=== PATIENT | male | born 1995 | race Caucasian/White ===

== ENCOUNTER 2024-03-17 22:27 | Emergency (ER) | payer BC, SELFPAY ==
--- NOTE | ~2024-03-17 | XR_ITS ---
EXAMINATION: XR chest 2V Exam Date/Time: 03/17/2024 22:42 CDT HISTORY: palpitations Comparison: 05/06/2015. RESULT: Lines, tubes, and devices: None. Lungs and pleura: Clear. Cardiomediastinal silhouette: Stable. Other: No acute osseous or upper abdominal finding. IMPRESSION: No acute cardiopulmonary process. Reviewed, dictated and finalized at location K.
--- NOTE | 2024-03-17 22:30 | ECG_ITS ---
Test Date: 2024-03-17 22:39:35 Measurements Intervals [place] Rate: 74 P: 41 [place]: 136 QRS: 27 QRSD: 110 T: 66 QT: 348 QTc: 386 Interpretive Statements SINUS RHYTHM INCOMPLETE RIGHT BUNDLE BRANCH BLOCK BASELINE ARTIFACT- I, II, III, AVR, AVL BORDERLINE ECG No previous ECG available for comparison Electronically Signed On 03-18-2024 06:26:01 CDT by Shyam Walter D.O.
[2024-03-17 22:34] VITALS: BP 135/91; PULSE 78; RESP 16; TEMP 36.8; O2SAT 100
[2024-03-17 22:45] LABS: Basophils Percent Auto 0.5 % (0.2-1.2); Eosinophils Absolute Auto 0.2 K/mm3 (0-0.3); Eosinophils Percent Auto 2.8 % (0-4.4); Hematocrit 47.5 % (42.0-52.0); Hemoglobin 16.7 g/dL (14.0-18.0); Immature Granulocyte Absolute 0.03 K/mm3 (0.00-0.031); Immature Granulocyte Percent A 0.4 % (0-0.5); Lymphocytes Absolute Auto 2.43 K/mm3 (0.9-3.2); Lymphocytes Percent Auto 29.5 % (18.3-44.2); Mean Corpuscular HGB Conc 35.2 g/dl (32-36); Mean Corpuscular Hemoglobin 30.1 pg (26-34); Mean Corpuscular Volume 85.7 fl (80-100); Mean Platelet Volume 11.7 fl (7.4-10.4); Monocytes Absolute Auto 0.5 K/mm3 (0.1-0.6); Monocytes Percent Auto 6.6 % (2.6-8.5); Neutrophils Percent Auto 60.2 % (45.5-73.1); Platelet Count Result 191 k/mm3 (150-375); Red Blood Count 5.54 M/mm3 (4.6-6.20); Red Cell Distribution Width 12.2 % (11.5-14.5); White Blood Count 8.2 K/mm3 (4.5-10.0)
[2024-03-17 22:55] LABS: Prothrombin Time 13.7 Seconds (11.1-14.7)
[2024-03-17 22:56] LABS: Partial Thromboplastin Time 28.2 Seconds (22.3-36.8)
[2024-03-17 23:05] LABS: Alanine Aminotransferase 32 U/L (6-50); Albumin Level 5.4 g/dL (3.5-5.1); Alkaline Phosphatase 52 U/L (38-126); Anion Gap 11 mmol/L (4-12); Aspartate Amino Transferase 31 U/L (17-59); Bilirubin,Total 0.9 mg/dL (0.2-1.3); Blood Urea Nitrogen 18 mg/dL (9-20); Calcium 9.7 mg/dL (8.4-10.2); Carbon Dioxide 26 mmol/L (22-30); Chloride 103 mmol/L (98-107); Estimated CRCL calculation 124 ml/min; Estimated Glomerular Filt Rate > 60; Glucose 98 mg/dL (65-110); Lipase 92 U/L (23-300); Potassium 3.7 mmol/L (3.4-5.0); Sodium 140 mmol/L (137-145)
[2024-03-17 23:12] VITALS: PULSE 78
[2024-03-17] MEDS: ASPIRIN 81 MG CHEWABLE TABLET 324 MG PO (23:13)
[2024-03-17 23:16] VITALS: BP 143/95; PULSE 89; RESP 21; O2SAT 96
[2024-03-17 23:16] LABS: Troponin I < 0.012 ng/mL (0.000-0.034)
[2024-03-17 23:31] VITALS: BP 127/86; PULSE 78; RESP 19; O2SAT 96
[2024-03-17 23:46] VITALS: BP 129/86; PULSE 74; RESP 18; O2SAT 95
--- NOTE | 2024-03-17 23:55 | ED.ARRPALP ---
HPI - Arrhythmia/Palpitations General Chief Complaint: Arrhythmia/Palpitations Stated Complaint: palpitations Time Seen by Provider: 03/17/24 23:38 History of Present Illness HPI narrative: Patient is a 28-year-old male with history of anxiety here with palpitations and an abnormal EKG reading that he performed on his own. Patient states he has had a very stressful work life recently had a stressful day at work, did not eat anything until this evening. He states that he got home from work began having symptoms around 8:00 p.m.. He notes that he was feeling palpitations and some tingling on the left side of his face. He started breathing quickly and did attempt to perform multiple EKGs through an twin on his phone. He states that he was having high heart rates up to 117 and had difficulty getting his heart rate below 100 while resting. His EKG readings read inconclusive, 1 of these read possible atrial fibrillation. He denies any history of cardiac disease. He takes multiple medications for anxiety. No recent changes in his medications. No history of PE or DVT. No recent travel or surgery. Symptoms have now resolved. Related Data Allergies Allergy/AdvReac Type Severity Reaction Status Date / Time No Known Allergies Allergy Verified 03/17/24 22:35 Review of Systems Review of Systems: All systems reviewed & are unremarkable except as noted in HPI and below Exam Narrative: GENERAL: Well-appearing, well-nourished, and in no acute distress. HEAD: Normocephalic, atraumatic. EYES: PERRLA and EOMI. ENT: Nares clear. Mucous membranes moist. NECK: Supple. CHEST: Clear to auscultation. No respiratory distress. HEART: Regular rate and rhythm. Normal peripheral pulses. ABDOMEN: Soft, nontender, nondistended. EXTREMITIES: Normal range of motion. No edema. SKIN: Warm, dry, no rash. NEURO: No focal deficits. Alert and oriented x3. PSYCH: Normal mood and affect. Course Course Emergency Course: Chart review performed. Patient here for palpitations and abnormal reading on his apple watch. Triage vitals normal. No prior visits in our system. Initial triage lab work reviewed, CBC unremarkable, electrolytes within normal limits. Initial troponin negative. Lipase normal. Chest x-ray negative. Patient seen evaluated, nontoxic appearing. Alert, oriented. Reviewed all initial results with patient, these are unremarkable and he has a heart score of 0. I did discuss options for repeat troponin, patient declined and would prefer to follow-up his primary care doctor. Given his low risk of cardiac disease and his initial negative workup I believe that this is appropriate. The results of pertinent diagnostic studies and exam findings were discussed. The patient?s provisional diagnosis and plan of care were discussed with the patient and present family. The patient and/or present family expressed understanding of the diagnosis and plan. The nurse was instructed to provide written instructions and appropriate follow-up information. The patient understands their need and responsibility to obtain additional follow-up as instructed. The risks of medications administered and prescribed were discussed with the patient and family present. Vital Signs Vital signs: Vital Signs Temperature 98.2 F 03/17/24 22:34 Pulse Rate 78 03/17/24 22:34 Respiratory Rate 16 03/17/24 22:34 Blood Pressure 135/91 H 03/17/24 22:34 Pulse Oximetry 100 03/17/24 22:34 Oxygen Delivery Room Air 03/17/24 22:34 Temperature 98.2 F 03/17/24 22:34 Pulse Rate 85 03/18/24 00:01 Respiratory Rate 16 03/18/24 00:01 Blood Pressure 129/88 03/18/24 00:01 Pulse Oximetry 95 03/18/24 00:01 Oxygen Delivery Room Air 03/17/24 22:34 MDM - Arrhythmia/Palpitations Lab Data 03/17/24 22:38 03/17/24 22:38 Labs: Lab Results 03/17/24 Range/Units 22:38 WBC 8.2 (4.5-10.0) K/mm3 RBC 5.54 (4.6-6.20)
[2024-03-18 00:01] VITALS: BP 129/88; PULSE 85; RESP 16; O2SAT 95
== END 2024-03-18 01:24 | disposition home or self-care (01) ==
PROVIDERS: Emergency Provider Student in an Organized Health Care Education/Training Program; PCP Pediatrics
DX: R00.2 Palpitations (principal); F41.9 Anxiety disorder, unspecified
CPT/HCPCS: 36415; 71046; 80053; 83690; 83735; 84443; 84484; 85025; 85610; 85730; 93005; 99284; A9270